=== PATIENT | male | born 1975 | race Caucasian/White ===

== ENCOUNTER 2024-04-19 06:15 | Day surgery (SDC) | payer OTHER ==
[~2024-04-19] VITALS: Ht 162.6 cm; Wt 81.6 kg
[2024-04-19] MEDS ORDERED: MEPERIDINE 100 MG INJ. 100 MG/ML VIAL ONE (06:57)
[2024-04-19] MEDS ORDERED: SIMETHICONE 40 MG/0.6 ML ML ONE (06:57)
[2024-04-19] MEDS ORDERED: MIDAZOLAM HCL 5 MG/5 ML VIAL ONE ×2 (06:58→08:18)
[2024-04-19 12:17] VITALS: O2SAT 96
[2024-04-19 17:44] VITALS: BP_SYST 111; PULSE 86; RESP 15
== END 2024-04-19 09:50 | disposition home or self-care (01) ==
LOC: SDS 06:15
PROVIDERS: ATTEND Internal Medicine Gastroenterology
DX: Z12.11 Encounter for screening for malignant neoplasm of colon (principal); K57.30 Diverticulosis of large intestine without perforation or abscess without bleeding; K64.8 Other hemorrhoids; I10 Essential (primary) hypertension; E11.9 Type 2 diabetes mellitus without complications; E78.5 Hyperlipidemia, unspecified; Z98.890 Other specified postprocedural states; Z90.49 Acquired absence of other specified parts of digestive tract
CPT/HCPCS: 45378; 82948; 99152; G0378; J2250; J2175